=== PATIENT | male | born 1980 | race Caucasian/White ===

== ENCOUNTER 2024-07-20 06:32 | Day surgery (SDC) | payer OTHER, SELFPAY | END 2024-07-20 09:02 | disposition home or self-care (01) | LOC: GI 06:32 | PROVIDERS: ATTENDING PHYSICIAN Student in an Organized Health Care Education/Training Program | DX: Z12.11 Encounter for screening for malignant neoplasm of colon (principal); K64.9 Unspecified hemorrhoids; D49.0 Neoplasm of unspecified behavior of digestive system; K62.89 Other specified diseases of anus and rectum; K63.5 Polyp of colon; K38.8 Other specified diseases of appendix | CPT/HCPCS: 45385; 45380; 88305 ==

== ENCOUNTER → 2024-07-22 11:52 | Outpatient (REF) | payer OTHER, SELFPAY | LOC: RAD 11:52 | PROVIDERS: ATTENDING PHYSICIAN Student in an Organized Health Care Education/Training Program | DX: K38.8 Other specified diseases of appendix (principal) | CPT/HCPCS: 74177; Q9967 ==

== ENCOUNTER → 2024-07-27 10:24 | Outpatient (REF) | payer OTHER, SELFPAY | LOC: MRI 3T 10:24 | PROVIDERS: ATTENDING PHYSICIAN Electrodiagnostic Medicine | DX: G35 Multiple sclerosis (principal) | CPT/HCPCS: 72156; 72157; A9575 ==

== ENCOUNTER → 2024-07-30 09:56 | Outpatient (REF) | payer OTHER, SELFPAY | LOC: MRI 3T 09:56 | PROVIDERS: ATTENDING PHYSICIAN Electrodiagnostic Medicine | DX: G35 Multiple sclerosis (principal) | CPT/HCPCS: 70553; A9575 ==

== ENCOUNTER 2024-08-24 06:25 | Inpatient (IN) | payer OTHER, SELFPAY ==
[2024-08-12 08:36] LABS: Hematocrit 44.4 % (39.0-52.0); Hemoglobin 15.7 g/dL (13.0-18.0); Mean Corp Hgb Conc. 35.4 g/dL (33.0-37.0); Mean Corpuscular Hgb 32.1 pg (27.0-31.0); Mean Corpuscular Volume 90.8 fL (80.0-94.0); Mean Platelet Volume 11.6 fL (7.4-10.4); Platelet Count 248 10^3/uL (130-400); Red Blood Cell Count 4.89 10^6/uL (4.70-6.10); Red Cell Dist. Width 12.6 % (11.5-14.5); White Blood Cell Count 5.7 10^3/uL (4.8-10.8)
[2024-08-12 08:49] LABS: INR 0.92; PT 12.8 Sec (11.4-14.6)
[2024-08-12 08:50] LABS: APTT 26.3 Sec (23.4-35.0)
[2024-08-12 09:00] LABS: ALT (SGPT) 21 U/L (0-50); AST (SGOT) 18 U/L (17-59); Albumin 4.3 g/dl (3.5-5.0); Alkaline Phosphatase 60 U/L (38-126); Blood Urea Nitrogen 11 mg/dl (9-20); Calcium 9.9 mg/dl (8.4-10.2); Carbon Dioxide 32 mmol/L (22-30); Chloride 101 mmol/L (98-107); Glucose 84 mg/dl (70-99); Potassium 4.9 mmol/L (3.5-5.1); Sodium 141 mmol/L (135-145); Total Bilirubin 0.9 mg/dl (0.2-1.3); Total Protein 6.9 g/dl (6.3-8.2); eGFR > 60.00
[2024-08-12 09:09] LABS: Glycohemoglobin (HgbA1c) 5.3 % (4.0-5.6)
[2024-08-12 12:42] VITALS: BMI 23.4
[2024-08-24] VITALS (37 sets, daily range): BP systolic 88–121; BP diastolic 57–86; BMI 23.4
[2024-08-24] MEDS: HEPARIN 5000 UNITS SC (07:09)
[2024-08-24] MEDS: NEURONTIN 600 MG PO (07:09)
[2024-08-24] MEDS: TYLENOL 1000 MG PO (07:09)
[2024-08-24] MEDS: NORMOSOL-R/PLASMALYTE-A 1000 IV ×3 (07:13→23:45)
--- NOTE | 2024-08-24 10:56 | W.IMMPOSTOP ---
Addendum entered and electronically signed by Samuel Aggarwal MD 08/24/24 17:10:
Patient's was updated in waiting area after the surgery.
Original Note:
Surgical Immed Post Op Note
-
Primary Surgeon: Eloise Aggarwal MD
Assisting Surgeon: none
Pre-op Diagnosis: appendiceal mucocele
Post-op Diagnosis: same
Procedure Performed: robotic right colectomy
Anesthesia Type: general plus local
Specimen / Cultures: right colon
Estimated Blood Loss: 30 cc
Complications: no immediate
Operative Findings: swollen appendix involving good portion of cecum
Silva in bladder.
Will send to med surg.
[2024-08-24] MEDS: ZOFRAN 4 MG IV (11:53)
[2024-08-24] MEDS: TORADOL 15 MG IV ×3 (11:53→23:05)
[2024-08-24 11:58] LABS: % Basophils 0.3 % (0-2); % Immature Granulocytes 0.4 % (0-0.5); % Neutrophils 92.3 % (42.2-75.2); Absolute Basophils 0.1 10^3/uL (0-0.2); Absolute Immature Granulocytes 0.1 10^3/uL (0-0.05); Absolute Lymphocytes 0.7 10^3/uL (1.2-3.4); Absolute Monocytes 0.3 10^3/uL (0.1-0.6); Absolute Neutrophils 13.7 10^3/uL (1.4-6.5); Hematocrit 37.1 % (39.0-52.0); Hemoglobin 13.5 g/dL (13.0-18.0); Mean Corp Hgb Conc. 36.4 g/dL (33.0-37.0); Mean Corpuscular Hgb 32.1 pg (27.0-31.0); Mean Corpuscular Volume 88.1 fL (80.0-94.0); Nucleated Red Blood Cells % 0 % (-); Platelet Count 222 10^3/uL (130-400); Red Blood Cell Count 4.21 10^6/uL (4.70-6.10); Red Cell Dist. Width 12.4 % (11.5-14.5); White Blood Cell Count 14.8 10^3/uL (4.8-10.8)
[2024-08-24 12:12] LABS: Blood Urea Nitrogen 14 mg/dl (9-20); Calcium 8.8 mg/dl (8.4-10.2); Carbon Dioxide 26 mmol/L (22-30); Chloride 101 mmol/L (98-107); Estimated Creatinine Clearance 119 ml/min; Glucose 125 mg/dl (70-99); Magnesium 2.1 mg/dl (1.6-2.3); Sodium 138 mmol/L (135-145); eGFR > 60.00
[2024-08-24] MEDS: TYLENOL PO (16:37)
[2024-08-24] MEDS: TYLENOL 650 MG PO ×3 (18:10→23:05)
[2024-08-25 03:45] VITALS: BP 109/68
[2024-08-25] MEDS: TORADOL 15 MG IV ×4 (04:05→23:20)
[2024-08-25] MEDS: TYLENOL 650 MG PO ×5 (04:07→23:21)
[2024-08-25 05:37] VITALS: BMI 23.3
[2024-08-25 07:22] LABS: % Basophils 0.1 % (0-2); % Immature Granulocytes 0.6 % (0-0.5); % Lymphocytes 5.7 % (20.5-51.1); % Monocytes 8.9 % (1.7-9.3); % Neutrophils 84.7 % (42.2-75.2); Absolute Immature Granulocytes 0.1 10^3/uL (0-0.05); Absolute Lymphocytes 0.9 10^3/uL (1.2-3.4); Absolute Monocytes 1.4 10^3/uL (0.1-0.6); Absolute Neutrophils 13.3 10^3/uL (1.4-6.5); Hematocrit 36.7 % (39.0-52.0); Hemoglobin 12.9 g/dL (13.0-18.0); Mean Corp Hgb Conc. 35.1 g/dL (33.0-37.0); Mean Corpuscular Hgb 31.6 pg (27.0-31.0); Mean Platelet Volume 11.7 fL (7.4-10.4); Nucleated Red Blood Cells % 0 % (-); Platelet Count 226 10^3/uL (130-400); Red Blood Cell Count 4.08 10^6/uL (4.70-6.10); Red Cell Dist. Width 12.5 % (11.5-14.5); White Blood Cell Count 15.7 10^3/uL (4.8-10.8)
[2024-08-25 07:40] VITALS: BP 115/81
[2024-08-25 07:47] LABS: Blood Urea Nitrogen 9 mg/dl (9-20); Calcium 8.5 mg/dl (8.4-10.2); Carbon Dioxide 28 mmol/L (22-30); Chloride 103 mmol/L (98-107); Estimated Creatinine Clearance > 125 ml/min; Glucose 118 mg/dl (70-99); Magnesium 2.3 mg/dl (1.6-2.3); Potassium 4.2 mmol/L (3.5-5.1); Sodium 140 mmol/L (135-145); eGFR > 60.00
[2024-08-25] MEDS: PROTONIX 40 MG PO (08:30)
[2024-08-25] MEDS: ENTEREG 12 MG PO ×2 (08:30→19:57)
--- NOTE | 2024-08-25 10:03 | CM ---
CM reviewed medical records. CM met with patient in room. Patient confirmed demographics. Patient lives independently with . Patient does not have a history of VN< SNF or DME. Patient requested help with finding a PCP. Patient has been seen by
the residency clinic, but would prefer another PCP provider. CM called [facility] on [facility] and confirmed that an appointment would be available within a month. CM provided patient with written information on that practice and a list of PCP
practices local to him from [facility].
PLAN: Home no needs.
--- NOTE | 2024-08-25 11:08 | W.PN.CRS1 ---
Today's Communication / Plan
-
Full liquids
DC Silva
Stop IV fluids
Lovenox
Assessment/Plan
-
POD#1 robotic right colectomy
hgb 12.9, WBC 15.7 (14.8)
vitals normal
-Tolerating clears. Advance to full liquid diet.
- DC IV fluids
- Discontinue Silva
- Out of bed
- Start Lovenox for DVT prophylaxis. Teds and SCDs in place.
- Okay to shower
- Or pathology pending
- Pain control: Tylenol and Toradol standing, Dilaudid as needed
- Trend labs
Subjective Data
Procedure
08/24/2024- robotic right colectomy
Subjective Data
Date of Service: August 25, 2024
Patient states he feels well. He has no complaints at this time. His pain is controlled. He is having flatus. He has not had a bowel movement yet. He would like to get up and walk around. Denies nausea or vomiting.
Objective Data
-
Vital Signs
Temp Pulse Resp BP Pulse Ox
97.9 F 89 16 115/81 98
08/25/24 07:40 08/25/24 07:40 08/25/24 07:40 08/25/24 07:40 08/25/24 07:40
Intake & Output
08/24/24 08/25/24 08/26/24
06:59 06:59 06:59
Intake Total 2360 / 2360
Output Total 4200 / 4200
Balance -1840 / -1840
Intake:
Oral fluids 480 / 480
IV fluids (Total) 0 / 188
Normosol 1000 / 1000
IV piggybacks 0 / 0
Output:
Urine, Silva 4200 / 4200
Lab Results
08/25/24 06:15
08/25/24 06:15
Physical Exam
-
General: No Acute Distress and AOx3
Abdomen: Soft, Non Distended and Non Tender
Skin: Warm and Dry
Incision: Clear, Dry, Intact
[2024-08-25 11:30] VITALS: BP 128/83
[2024-08-25] MEDS: NORMOSOL-R/PLASMALYTE-A IV (11:40)
[2024-08-25 15:00] VITALS: BP 121/77
[2024-08-25] MEDS: TYLENOL PO (16:00)
[2024-08-25] MEDS: LOVENOX 40 MG SC (17:46)
[2024-08-25] MEDS: FLUSH (NSS) 2 FLUSH IV (17:47)
[2024-08-25 23:00] VITALS: BP 108/73
[2024-08-26] MEDS: TYLENOL 650 MG PO ×2 (04:28→08:48)
[2024-08-26] MEDS: TORADOL 15 MG IV (04:29)
[2024-08-26 05:12] VITALS: BMI 24.1
[2024-08-26 07:24] LABS: % Basophils 0.5 % (0-2); % Eosinophils 1.3 % (0-6); % Immature Granulocytes 0.4 % (0-0.5); % Lymphocytes 16.8 % (20.5-51.1); % Monocytes 11.7 % (1.7-9.3); % Neutrophils 69.3 % (42.2-75.2); Absolute Basophils 0.1 10^3/uL (0-0.2); Absolute Eosinophils 0.1 10^3/uL (0-0.7); Absolute Lymphocytes 1.6 10^3/uL (1.2-3.4); Absolute Monocytes 1.1 10^3/uL (0.1-0.6); Absolute Neutrophils 6.5 10^3/uL (1.4-6.5); Hematocrit 34.3 % (39.0-52.0); Mean Corpuscular Hgb 32.1 pg (27.0-31.0); Mean Corpuscular Volume 91.7 fL (80.0-94.0); Mean Platelet Volume 11.9 fL (7.4-10.4); Nucleated Red Blood Cells % 0 % (-); Platelet Count 199 10^3/uL (130-400); Red Blood Cell Count 3.74 10^6/uL (4.70-6.10); Red Cell Dist. Width 12.9 % (11.5-14.5); White Blood Cell Count 9.4 10^3/uL (4.8-10.8)
[2024-08-26 07:35] VITALS: BP 116/79
--- NOTE | 2024-08-26 08:24 | CM ---
Addendum entered by Cynthia Singh RN 08/26/24 10:16:
If discharge today, no home needs noted.
PLAN: home no needs.
Addendum entered by Cynthia Singh RN 08/26/24 10:13:
C
Original Note:
Cm reviewed medical records. Patient may be ready for discharge today pending diet tolerance.
[2024-08-26] MEDS: PROTONIX 40 MG PO (08:48)
[2024-08-26] MEDS: ENTEREG 12 MG PO (08:48)
--- NOTE | 2024-08-26 09:46 | W.PN.CRS1 ---
Today's Communication / Plan
-
low residue
possible d/c later today
Assessment/Plan
-
POD#2 robotic right colectomy
hgb 12.0, WBC 9.4 (15.7)
vitals normal
-Advance to low residue diet
- Voiding post milligan removal
- Out of bed
- Start Lovenox for DVT prophylaxis. Teds and SCDs in place.
- Okay to shower
- Or pathology pending
- Pain control: Tylenol and Toradol standing, Dilaudid as needed
- Discharge today if tolerates a low residue diet. All discharge instructions discussed with patient and family including medications, activity levels, and follow up. All questions answered.
Subjective Data
Procedure
08/24/2024- robotic right colectomy
Subjective Data
Date of Service: August 26, 2024
Patient denies nausea or vomiting. He had three bowel movements yesterday. He has some pain but it is controlled. Voiding without difficulty.
Objective Data
-
Vital Signs
Temp Pulse Resp BP Pulse Ox
98.3 F 88 16 116/79 98
08/26/24 07:35 08/26/24 07:35 08/26/24 07:35 08/26/24 07:35 08/26/24 07:35
Intake & Output
08/25/24 08/26/24 08/27/24
06:59 06:59 06:59
Intake Total 2360 / 2360 2480 / 2480
Output Total 4200 / 4200 900 / 900
Balance -1840 / -1840 1580 / 1580
Intake:
Oral fluids 480 / 480 2480 / 2480
IV fluids (Total) 1879 / 188
Normosol 1000 / 1000
IV piggybacks 0 / 0
Output:
Urine, Milligan 4200 / 4200
Urine, Voided 900 / 900
Other:
Number of approximated MODERATE 2
amounts of urine
Lab Results
08/26/24 06:15
08/25/24 06:15
Physical Exam
-
General: No Acute Distress and AOx3
Abdomen: Soft, Non Distended and Tender (mild around incisions)
Skin: Warm and Dry
Incision: Clear, Dry, Intact
[2024-08-26 14:27] VITALS: BP 119/84
== END 2024-08-26 15:10 | disposition home or self-care (01) | DRG 331 ==
LOC: 2 SOUTH 06:25
PROVIDERS: Physician Assistant; ADMITTING PHYSICIAN Surgery
PROC: 8E0W4CZ Robotic Assisted Procedure of Trunk Region, Percutaneous Endoscopic Approach (ICD-10-PCS; 2024-08-24)
PROC: 0DTF4ZZ Resection of Right Large Intestine, Percutaneous Endoscopic Approach (ICD-10-PCS; 2024-08-24)
DX: K38.8 Other specified diseases of appendix (principal)
CPT/HCPCS: 88309; 36415; 80048; 80053; 83036; 83735; 85025; 85027; 85610; 85730; 86850; 86900; 86901; 93005; C1776; J1335